=== PATIENT | male | born 1970 | race Two or more races ===

== ENCOUNTER 2023-04-09 16:18 | Emergency (ER) | payer MEDICAID ==
[~2023-04-09] VITALS: Ht 175.3 cm; Wt 63.5 kg
[2023-04-09] MEDS ORDERED: OMEP20TA5 PO (17:13)
[2023-04-09] MEDS ORDERED: ACET-2605 PO (17:15)
[2023-04-09 17:44] VITALS: BP 116/79; TEMP 97.9; O2SAT 98
[2023-04-09 17:57] LABS: OCCULT BLOOD STOOL NEGATIVE (NEGATIVE)
== END 2023-04-09 17:44 | disposition home or self-care (01) ==
LOC: ER 16:23
DX: R10.13 Epigastric pain (principal)
CPT/HCPCS: 82272-TC